=== PATIENT | female | born 1965 | race Caucasian/White ===

== ENCOUNTER 2016-10-23 08:21 | Inpatient (IN) | payer BC ==
[2016-10-23] MEDS ORDERED: ACETAMINOPHEN TAB 325 MG TAB PO PRN (08:28)
[2016-10-23] MEDS ORDERED: MORPHINE SULFATE 4 MG/ML SYRINGE IV PRN (08:28)
[2016-10-23] MEDS ORDERED: NALOXONE 0.4 MG/ML 1 ML VIAL IV PRN (08:28)
[2016-10-23] MEDS ORDERED: LIDOCAINE 2% INJ 20 MG/ML SQ ONE ×2 (08:36→08:46)
[2016-10-23] MEDS ORDERED: SODIUM CHLORIDE 0.9% 1,000 ML IV ONE ×2 (08:38→09:50)
[2016-10-23] MEDS ORDERED: fentaNYL (PF) 50 MCG/ML 2 ML AMP IV ONE (08:43)
[2016-10-23] MEDS ORDERED: MIDAZOLAM 2 MG/2 ML VIAL IV ONE (08:54)
[2016-10-23] MEDS ORDERED: BIVALIRUDIN 250 MG in SODIUM CHLORIDE 0.9% 50 ML IV ONE (08:57)
[2016-10-23] MEDS ORDERED: BIVALIRUDIN BOLUS 250 MG/50 ML IV ONE (08:57)
[2016-10-23] MEDS ORDERED: ATROPINE SULFATE 0.1 MG/ML 10ML SYRINGE IV ONE (09:09)
[2016-10-23] MEDS ORDERED: DOPamine DRIP 800 MG in DEXTROSE/WATER 1 500ML.BAG IV ONE (09:13)
[2016-10-23] MEDS ORDERED: MEPERIDINE 50 MG/ML SYRINGE IVP ONE (09:22)
[2016-10-23] MEDS: niCARdipine Syringe (1,000 mcg/10 mL) INTRACORON ONE ×2 (09:36→09:43)
[2016-10-23] MEDS ORDERED: PRASUGREL 10 MG TAB PO ONE (09:49)
[2016-10-23 09:51] LABS: Basophils # (A) 0.1 k/uL (0-0.2); Basophils % (A) 0 %; CH 31.4; CHCM 33.5; Eosinophils % (A) 0 %; HCT 41.4 % (34.0-46.0); HGB 13.5 gm/dL (11.4-16.0); Luc # (Auto) 0.09; Luc % (Auto) 1; Lymphocytes # (A) 1.1 k/uL (1.0-4.8); Lymphocytes % (A) 9 %; MCH 30.7 pg (25.0-35.0); MCHC 32.5 g/dL (31.0-37.0); MCV 94.3 fL (80.0-100.0); Monocytes # (A) 0.3 k/uL (0-1.0); Monocytes % (A) 2 %; Neutrophils # (A) 11.2 k/uL (1.3-7.7); Neutrophils % (A) 88 %; RBC 4.39 m/uL (3.80-5.40); RDW 13.4 % (11.5-15.5); WBC 12.7 k/uL (3.8-10.6)
[2016-10-23] MEDS ORDERED: IOHEXOL 350 MG/ML 100 ML BOTTLE INJ ONE (09:51)
[2016-10-23 10:08] LABS: ALT 35 U/L (9-52); AST 35 U/L (14-36); Alkaline Phosphatase 75 U/L (38-126); Anion Gap 11 mmol/L; Blood Urea Nitrogen 12 mg/dL (7-17); Calcium 8.3 mg/dL (8.4-10.2); Carbon Dioxide 22 mmol/L (22-30); Chloride 107 mmol/L (98-107); Glucose 137 mg/dL (74-99); Non-African American GFR(MDRD) >60 (>60 ml/min/1.73 sqM); Potassium 4.1 mmol/L (3.5-5.1); Sodium 140 mmol/L (137-145); Total Bilirubin 0.4 mg/dL (0.2-1.3)
[2016-10-23 10:26] LABS: Glucose,Whole Blood 110 mg/dL (75-99)
--- NOTE | 2016-10-23 11:51 | CONS ---
DATE OF CONSULTATION: CHIEF COMPLAINT: Acute inferior wall myocardial infarction. Juliane is a 51-year-old lady with no significant past medical history who had episodes of chest pressure yesterday mild to moderate with left arm numbness, resolved spontaneously. This morning, she woke up and had severe chest pressure with bilateral arm pain. EMS was called. She was found to have inferior ST segment elevation and was brought to the hospital emergently. I reviewed the EKGs even before the patient arrived in the ER and I met the patient for the first time in the [employer]. Patient is having acute inferior wall myocardial infarction and we are taking her expeditiously for primary angioplasty. Patient was otherwise doing well until now. Her coronary risk factors in the form of smoking. There is no history of hypertension, diabetes, dyslipidemia. Medications include Claritin and vitamin D. Allergic to SULFA. Family history is negative for premature coronary artery disease. SOCIAL HISTORY: Significant for smoking. There is no history of EtOH abuse, or drug abuse. REVIEW OF SYSTEMS: HEENT is unremarkable. CARDIAC: As described above. RESPIRATORY: Negative. GI: Negative. GENITOURINARY: Negative. ALLERGY/IMMUNOLOGY: Negative. SKIN: Negative. MUSCULOSKELETAL: Signification for arthritis. PSYCHOSOCIAL: Negative. ENDOCRINE: Negative. DERM: Negative. HEMATOLOGICAL: Negative. CONSTITUTIONAL: Negative. ADMINISTRATIVE OFFICER: Negative. ONCOLOGICAL: Negative. The rest of the system review is not relevant. On exam, patient for in pain, blood pressure was low and she was to obtain a hydration. Heart rate was in the 70s respiratory rate is 18. There is no jugular venous distention. Carotid upstroke is normal. There is no bruit. Chest exam reveals good air entry bilaterally. Heart exam reveals first and second heart sounds. No gallop. No murmur. Abdomen is soft, nontender. Exam of extremities did not reveal any edema. Peripheral pulses are felt. EKG shows acute inferior wall myocardial infarction. Labs were pending at this time. ASSESSMENT: Acute inferior wall myocardial infarction, probably secondary to occlusion of the right coronary artery. PLAN: Patient will be treated with aspirin, nitrates and will undergo emergent cardiac catheterization. She had been explained of risks, benefits, and alternatives, understood and accepted. Miles first and . INDICATION: Acute inferior wall myocardial infarction. PROCEDURE NOTE: After obtaining informed consent, left heart catheterization is done. At the right femoral artery using standard Alan catheters. Patient tolerated the procedure well without any obvious immediate complications. FINDINGS: HEMODYNAMICS: Left ventricular end-diastolic pressure was 8 to 10 mm there is no significant gradient across the aortic valve. Left ventriculogram: Left gram are performed. History angiographic data: Other than left main coronary artery: Left main coronary artery is normocephalic and is free of stenosis. It divides into left anterior descending coronary artery and circumflex coronary artery. LAD and its branches, circumflex coronary artery branches are free of significant stenosis. Right coronary artery is totally occluded in its midportion. CONCLUSION: Acutely occluded mid right coronary artery. PLAN: Patient will undergo angioplasty of the same Sunday
--- NOTE | 2016-10-23 11:54 | PCN ---
DATE OF PROCEDURE: INDICATION: Acute inferior wall myocardial infarction. PROCEDURE NOTE: After obtaining informed consent, left heart catheterization is done via the right femoral artery using standard Alan catheters. Patient tolerated the procedure well without any obvious immediate complications. FINDINGS: 1. HEMODYNAMICS: Left ventricular end-diastolic pressure is 8 to 10 mm, there is no significant gradient across the aortic valve. 2. LEFT VENTRICULOGRAM: Left ventriculogram is not performed. 3. ANGIOGRAPHIC DATA: LEFT MAIN CORONARY ARTERY: Left main coronary artery is normal and is free of stenosis. It divides into left anterior descending coronary artery and circumflex coronary artery. LAD and its branches, circumflex coronary artery and its branches are free of significant stenosis. Right coronary artery is totally occluded in its midportion. CONCLUSIONS: Acutely occluded mid-right coronary artery. PLAN: Patient will undergo angioplasty of the same.
[2016-10-23] MEDS: ATORVASTATIN 80 MG TAB PO SCH (12:55)
[2016-10-23] MEDS: PANTOPRAZOLE 40 MG/10 ML VIAL IV SCH (12:56)
[2016-10-23] MEDS: NICOTINE 14MG/24HR PATCH TRANSDERM SCH (12:57)
[2016-10-23] MEDS: METOPROLOL TARTRATE 12.5 MG TAB PO SCH (21:36)
[2016-10-24 04:33] LABS: Basophils % (A) 0 %; CHCM 32.9; Eosinophils # (A) 0.1 k/uL (0-0.7); Eosinophils % (A) 2 %; HCT 35.9 % (34.0-46.0); HDW 2.24; HGB 11.7 gm/dL (11.4-16.0); Luc # (Auto) 0.17; Luc % (Auto) 2; Lymphocytes # (A) 3.1 k/uL (1.0-4.8); Lymphocytes % (A) 37 %; MCH 30.8 pg (25.0-35.0); MCHC 32.5 g/dL (31.0-37.0); MCV 94.7 fL (80.0-100.0); Mean Platelet Volume 6.4; Monocytes # (A) 0.4 k/uL (0-1.0); Monocytes % (A) 4 %; Neutrophils # (A) 4.7 k/uL (1.3-7.7); Neutrophils % (A) 55 %; RBC 3.79 m/uL (3.80-5.40); RDW 13.6 % (11.5-15.5); WBC 8.5 k/uL (3.8-10.6); WBC (Perox) 8.68
[2016-10-24 04:42] LABS: Anion Gap 6 mmol/L; Blood Urea Nitrogen 11 mg/dL (7-17); Calcium 8.5 mg/dL (8.4-10.2); Carbon Dioxide 22 mmol/L (22-30); Chloride 111 mmol/L (98-107); Glucose 95 mg/dL (74-99); Non-African American GFR(MDRD) >60 (>60 ml/min/1.73 sqM); Potassium 4.2 mmol/L (3.5-5.1); Sodium 139 mmol/L (137-145)
--- NOTE | 2016-10-24 07:12 | PTCA ---
DATE OF SERVICE: 10/23/2016 PROCEDURE: PTCA and stenting of proximal/mid and distal RCA performed in the setting of an acute ST-elevation myocardial infarction as a primary procedure. Performed by Dr. Flakita Gomes. CLINICAL INFORMATION: Juliane Ng is a 51-year-old lady with a history of smoking and no other major risk factors, came to the hospital with chest pain and had inferior ST elevation. She was evaluated by Dr. Quinones who performed coronary angiography that revealed that RCA was totally occluded in the midportion left system did not have any significant disease. She was advised intervention of the RCA. The entire coronary artery was filled with thrombus. PROCEDURE NOTE: The existing 6 Maori introducer in the right femoral artery was used to perform procedure. I used a standard right Alan-type guide catheter to cannulate the right coronary artery. I used a BMW wire to cross the lesion and wire was kept distally. Predilatation was performed using a 3.0 caliber Trek balloon, I predilated the site of total occlusion. This was accomplished in 56 minutes from the time patient came to the emergency room. I also gave some distal inflations. Then the patient had a transient vessel occlusion with ST elevation. Promptly, I advanced the wire distally. I gave additional inflations. Patient also became bradycardic requiring intravenous atropine to be given and also for a transient use of dopamine. After multiple inflations, the entire vessel opened up. Patient stabilized. I then advanced a 2.75 caliber Xience 12 mm long stent and deployed this in the distal aspect of the RCA just before the bifurcation. Excellent angiographic result was achieved in that area. I also deployed another 2.75 caliber 15 mm stent and deployed this in the midportion. After some deliberation, I advanced a 2.75 caliber, 8 mm long Xience stent and deployed this in between the 2 stents. The entire mid coronary artery segment was therefore stented using a 2.75 caliber stents, a 15, at 12 and an 8 mm long stents were used. The distal flow in the artery was excellent. Patient had complete relief of chest pain and a significant improvement in the EKGs and she remained hemodynamically stable. I then used an Angio-Seal device to secure hemostasis and patient was sent to the room in a stable condition. Results were discussed with the patient and family members. Excellent angiographic result was achieved and this was accomplished in 56 minutes for the time she came to the emergency room. Results were discussed with the patient, her , her boyfriend and also of her daughter. She was sent to the ICU in a stable condition with improvement in EKG and total relief of chest pain.
--- NOTE | 2016-10-24 10:19 | ECHOF ---
Referral Reason:STEMI MEASUREMENTS -------- HEIGHT: 160.0 cm WEIGHT: 86.2 kg BP: 100/57 RVIDd: 3.0 cm (< 3.3) IVSd: 1.0 cm (0.6 - 1.1) LVIDd: 3.9 cm (3.9 - 5.3) LVPWd: 1.1 cm (0.6 - 1.1) IVSs: 1.5 cm LVIDs: 2.7 cm LVPWs: 1.6 cm LA Diam: 3.5 cm (2.7 - 3.8) LAESV Index (A-L): 32.66 ml/m Ao Diam: 3.1 cm (2.0 - 3.7) AV Cusp: 2.2 cm (1.5 - 2.6) LA Diam: 3.3 cm (2.7 - 3.8) MV EXCURSION: 14.273 mm (> 18.000) MV EF SLOPE: 134 mm/s (70 - 150) EPSS: 0.5 cm MV E Vega: 1.30 m/s MV DecT: 166 ms MV A Vega: 0.97 m/s MV E/A Ratio: 1.34 FINDINGS -------- Sinus rhythm. This was a technically good study. The left ventricular size is normal. There is borderline concentric left ventricular hypertrophy. Overall left ventricular systolic function is normal with, an EF between 60 - 65 %. The right ventricle is normal in size. LA is midly dilated 29-33ml/m2. The right atrium is normal in size. Aortic valve is trileaflet and is mildly thickened. Mild mitral annular calcification present. The tricuspid valve appears structurally normal. No regurgitation noted Trace/mild (physiologic) pulmonic regurgitation. The aortic root is mildy dilated. Normal inferior vena cava with normal inspiratory collapse consistent with estimated right atrial pressure of 5 mmHg. There is no pericardial effusion. CONCLUSIONS -------- 1. Sinus rhythm. 2. Mild mitral annular calcification present. 3. The tricuspid valve appears structurally normal. 4. Trace/mild (physiologic) pulmonic regurgitation. 5. The aortic root is mildy dilated. 6. Normal inferior vena cava with normal inspiratory collapse consistent with estimated right atrial pressure of 5 mmHg. 7. There is no pericardial effusion. 8. This was a technically good study. 9. The left ventricular size is normal. 10. There is borderline concentric left ventricular hypertrophy. 11. Overall left ventricular systolic function is normal with, an EF between 60 - 65 %. 12. The right ventricle is normal in size. 13. LA is midly dilated 29-33ml/m2. 14. The right atrium is normal in size. 15. Aortic valve is trileaflet and is mildly thickened. TECHNOLOGY SOLUTIONS ARCHITECT: Isamar Haas RDCS
[2016-10-24] MEDS: SODIUM CHLORIDE 0.9% 1,000 ML IV SCH ×2 (10:57→21:12)
[2016-10-24] MEDS: NICOTINE 14MG/24HR PATCH TRANSDERM SCH (10:57)
[2016-10-24] MEDS: ATORVASTATIN 80 MG TAB PO SCH (12:05)
[2016-10-24] MEDS: ASPIRIN 325 MG TAB PO SCH (12:05)
[2016-10-24] MEDS: METOPROLOL TARTRATE 12.5 MG TAB PO SCH ×2 (12:05→21:12)
[2016-10-24] MEDS: CLOPIDOGREL 75 MG TAB PO SCH (12:05)
[2016-10-24] MEDS: PANTOPRAZOLE 40 MG/10 ML VIAL IV SCH (12:28)
--- NOTE | 2016-10-24 14:28 | P.HPIM ---
History of Present Illness H&P Date: 10/24/16 Chief Complaint: Chest pain 51-year-old female with no past medical history comes in the hospital with sudden onset chest pain that initially started the night before presentation. Patient thought it was gas pain noted. Patient however after he woke up the next morning has significant chest pain that was midsternal location crushing in nature radiating to both her extremities. Patient was seen in the ER was noted to have a troponin elevation and ST-T wave changes. Patient was emergently taken to flex was noted to have a RCA obstruction. Patient thereafter had a PCI/PTCA to the mid and distal RCA. Patient was started on Physical therapy. Limited. Patient was seen in the ICU denies having any chest pain, difficulty breathing, nausea, vomiting at this time. she apparently was not having any exertional dyspnea or chest pain prior to admission. Review of Systems All systems: negative (Noted in HPI) Past Medical History Past Medical History: Myocardial Infarction (SC) Last Myocardial Infarction Date:: 10/23/2016 History of Any Multi-Drug Resistant Organisms: MRSA Date of last positivie culture/infection: 12/27/15 MDRO Source:: LEFT LEG MRSA Past Surgical History: No Surgical Hx Reported Past Anesthesia/Blood Transfusion Reactions: No Reported Reaction Past Psychological History: No Psychological Hx Reported Smoking Status: Current every day smoker - Past Family History Mother Family Medical History: Coronary Artery Disease (CAD) Medications and Allergies Home Medications Medication Instructions Recorded Confirmed Type Cholecalciferol [Vitamin D3] 1,000 unit PO DAILY 10/23/16 10/23/16 History Loratadine [Claritin] 10 mg PO DAILY PRN 10/23/16 10/23/16 History Multivitamins, Thera [Multivitamin] 1 tab PO DAILY 10/23/16 10/23/16 History Allergies Allergy/AdvReac Type Severity Reaction Status Date / Time Sulfa (Sulfonamide Allergy Unknown Verified 10/23/16 10:08 Antibiotics) Physical Exam Vitals: Vital Signs Temp Pulse Pulse Resp BP BP Pulse Ox 10/24/16 12:37 70 16 112/69 97 10/24/16 12:00 64 20 85/58 98 10/24/16 11:00 58 L 20 106/65 10/24/16 10:00 62 18 85/58 10/24/16 09:00 82 20 103/54 10/24/16 08:00 98.4 F 86 23 100/57 98 10/24/16 07:00 71 25 H 95/55 100 10/24/16 06:00 59 L 17 94/63 100 10/24/16 05:00 62 19 84/47 100 10/24/16 04:00 97.3 F L 63 16 96/60 10/24/16 03:00 76 22 91/54 98 10/24/16 02:00 56 L 18 91/44 10/24/16 01:00 56 L 16 95/62 10/24/16 00:00 97.9 F 81 66 H 85/54 100 10/23/16 23:00 59 L 26 H 83/53 100 10/23/16 22:00 59 L 21 98/61 98 10/23/16 21:00 61 22 87/55 100 10/23/16 20:00 97.9 F 61 22 96/62 100 10/23/16 19:00 64 23 106/57 10/23/16 18:00 67 27 H 10/23/16 17:00 67 19 87/58 100 10/23/16 16:00 98.4 F 61 16 86/55 100 10/23/16 15:00 63 23 84/56 100 Intake and Output 10/23/16 10/24/16 10/24/16 22:59 06:59 14:59 Intake Total 1050 900 580 Output Total 600 300 Balance 450 900 280 Intake: IV 600 900 100 Sodium Chloride 0.9% 1, 600 900 100 000 ml @ 100 mls/hr IV . Q10H JEFF Rx#:[id number] Intake, IV Titration 200 Amount Sodium Chloride 0.9% 1, 200 000 ml @ 100 mls/hr IV . Q10H JEFF Rx#:[id number] Oral 250 480 Output: Urine 600 300 Other: # Voids 1 0 1 Weight 86.183 kg 94.9 kg 94.9 kg Patient Weight 10/25/16 06:59 Weight 94.9 kg Physical exam Gen. appearance oriented 3 in no distress Neck is supple no JVD Lungs good air entry clear to auscultation no rhonchi or wheezing Heart S1-S2 heard regular rate and rhythm no murmurs appreciated Abdomen is soft nontender no organomegaly bowel sounds are intact Neurologically cranial nerves II-12 grossly intact no focal motor or sensory deficits noted Skin no abnormalities appreciated Results CBC & Chem 7: 10/24/16 04:10 10/24/16 04:10 Labs: Abnormal Lab Results - Last 24 Hours (Table) 10/24/16 10/24/16 Range/Units 04:10 04:10 RBC 3.79 L (3.80-5.40) m/uL Chloride 111 H (98-107) mmol/L Thrombosis Risk Factor Assmnt - Choose All That Apply Each Factor Represents 1 point: Acute SC, Age 41-60 years, Obesity (BMI >25) Thrombosis Risk Factor Assessment Total Risk Factor Score: 3 Thrombosis Risk Factor Assessment Level: Moderate Risk Assessment and Plan Plan: ST elevation myocardial infraction to the RCA status post PCI, PTCA Plan Dual antiplatelet therapy. Atorvastatin 80 mg. Beta hermes therapy .
--- NOTE | 2016-10-24 14:46 | PN ---
Juliane is a 51-year-old lady who was admitted to hospital with acute inferior wall myocardial infarction, underwent emergent cardiac catheterization and angioplasty of totally occluded right coronary artery. This morning, she is doing well and is free of symptoms. She has somewhat of a LOW blood pressures in the 80s but asymptomatic. Patient is on aspirin, Plavix, Lipitor which she is able to take. Metoprolol is on hold. On exam, comfortable at rest. Blood pressure is 85/50, respiratory rate is 18. There is no jugular venous distention. Chest exam reveals good air entry bilaterally. Heart exam reveals first and second heart sounds. No gallop. No murmur. Abdomen is soft, nontender. Exam of the extremities did not reveal any edema. Peripheral pulses are felt. I only have one set of troponin and I do not see the point of doing troponins on her. Hemoglobin is 11.7. Creatinine is 0.7. An echocardiogram shows normal LV function. ASSESSMENT: Acute inferior wall myocardial infarction, status post cath angioplasty. PLAN: Patient is doing well. She will continue with the current medications. Will be transferred out of ICU.
[2016-10-24 15:52] VITALS: RESP 18
[2016-10-25] MEDS: SODIUM CHLORIDE 0.9% 1,000 ML IV SCH (06:44)
[2016-10-25] MEDS ORDERED: PANTOPRAZOLE 40 MG TABLET PO SCH (07:30)
[2016-10-25 08:52] VITALS: BP 97/61; PULSE 71; TEMP 98.4
[2016-10-25] MEDS ORDERED: METOPROLOL TARTRATE 12.5 MG TAB PO SCH (09:00)
[2016-10-25] MEDS: ASPIRIN 325 MG TAB PO SCH (09:12)
[2016-10-25] MEDS: CLOPIDOGREL 75 MG TAB PO SCH (09:12)
[2016-10-25] MEDS: ATORVASTATIN 80 MG TAB PO SCH (09:12)
[2016-10-25] MEDS: NICOTINE 14MG/24HR PATCH TRANSDERM SCH (09:16)
--- NOTE | 2016-10-25 11:40 | P.PN ---
Subjective Principal diagnosis: Inferior wall STEMI This is a 51-year-old lady admitted to the hospital with an acute inferior wall ST elevation myocardial infarction, she underwent emergent catheterization with stenting of the right coronary artery. Patient was seen and examined this morning denies any chest pain or difficulty in breathing. She's been up ambulating without any difficulty. Blood pressure this morning in the 80s systolic range, the beta hermes was held last night. Dose of beta hermes decreased from 12-1/2 mg twice a day to 12-1/2 mg daily. After ambulating the patient's blood pressure came up to 108/60. She feels well. Eager to be discharged home. Objective - Vital Signs Vital signs: Vital Signs Temp 98.4 F 10/25/16 08:00 Pulse 71 10/25/16 08:00 Resp 18 10/25/16 08:00 BP 97/61 10/25/16 08:00 Pulse Ox 95 10/25/16 08:00 Intake & Output 10/24/16 10/25/16 10/25/16 18:59 06:59 18:59 Intake Total 700 360 Output Total 300 Balance 400 360 Weight 94.9 kg 86.8 kg Intake: IV 100 Sodium Chloride 0.9% 1, 100 000 ml @ 100 mls/hr IV . Q10H JEFF Rx#:[id number] Oral 600 360 Output: Urine 300 Other: Voiding Method Toilet Toilet # Voids 1 2 - Exam PHYSICAL EXAMINATION: HEENT: Head is atraumatic, normocephalic. Pupils equal, round. Neck is supple. There is no elevated jugular venous pressure. HEART EXAMINATION: Heart S1, S2 normal. No murmur or gallop heard. CHEST EXAMINATION: Lungs are clear to auscultation and precussion. No chest wall tenderness is noted on palpation or with deep breathing. ABDOMEN: Soft, nontender. Bowel sounds are heard. No organomegaly noted. Right and left groins soft, no evidence of any hematoma. EXTREMITIES: 2+ peripheral pulses with no evidence of peripheral edema and no calf tenderness noted. NEUROLOGIC patient is awake, alert and oriented -3. . - Labs CBC & Chem 7: 10/24/16 04:10 10/24/16 04:10 Assessment and Plan (1) ST elevation myocardial infarction (STEMI) of inferior wall Status: Acute (2) S/P right coronary artery (RCA) stent placement Status: Acute (3) Hyperlipemia Status: Acute (4) Nicotine dependence Status: Acute Plan: From cardiology's perspective, patient may be able to be discharged home today. We will make her a follow-up appointment in the office to see Dr. Siegel in 2 weeks. Patient will be discharged home on aspirin 325 mg daily, Lipitor 80 mg daily, Plavix 75 mg daily, metoprolol tartrate 12-1/2 mg daily, nicotine patch, and sublingual nitroglycerin as needed for chest pain. The patient has been educated regarding her current medications and prescriptions have been provided. DNP note has been reviewed, I agree with a documented findings and plan of care. Patient was seen and examined.
--- NOTE | 2016-10-25 17:12 | P.DS ---
Providers Date of admission: 10/23/16 08:57 Expected date of discharge: 10/25/16 Attending physician: Skyler Sutton Consults: 10/23/16 08:28 Consult Physician Stat Consulting Provider: Samson Morfin Consult Reason/Comments: Post STEMI ICU admission Do you want consulting provider notified?: Yes 10/23/16 10:35 Consult Physician Routine Consulting Provider: Ritesh Gomes Consult Reason/Comments: stemi, post cath Do you want consulting provider notified?: Already Contacted Dr. Quinones, Cardiology Primary care physician: Yulisa Lambert Hospital Course: Final Diagnoses: 1. ST elevation myocardial infraction to the RCA status post PCI, PTCA. 2. Hyperlipidemia 3. Nicotine dependence Hospital course:This is a 51-year-old female with no past medical history admitted with acute inferior STEMI , troponin elevation and ST-T wave changes.. Evaluated by Cardiology and underwent emergent cardiac catheterization,PCI/PTCA to the mid and distal RCA. Tolerated procedure well. Echo reporting normal EF 6065% Postprocedure developed borderline hypotension and beta hermes dose decreased. Cleared by cardiology for discharge. Patient is being discharged home in stable condition with guarded prognosis. Patient Condition at Discharge: Stable Plan - Discharge Summary New Discharge Prescriptions: Aspirin 325 mg PO DAILY #30 tab Atorvastatin [Lipitor] 80 mg PO DAILY #30 tab Clopidogrel [Plavix] 75 mg PO DAILY #30 tab Metoprolol Tartrate [Lopressor] 12.5 mg PO DAILY #30 tab Nicotine 14Mg/24Hr Patch [Habitrol] 1 patch TRANSDERM DAILY #30 patch Nitroglycerin Sl Tabs [Nitrostat] 0.4 mg SUBLINGUAL Q5M PRN #100 tab PRN Reason: Chest Pain Pantoprazole [Protonix] 40 mg PO AC-BRKFST #30 tablet.dr Discharge Medication List Cholecalciferol [Vitamin D3] 1,000 unit PO DAILY 10/23/16 [History] Loratadine [Claritin] 10 mg PO DAILY PRN 10/23/16 [History] Multivitamins, Thera [Multivitamin] 1 tab PO DAILY 10/23/16 [History] Aspirin 325 mg PO DAILY #30 tab 10/25/16 [Rx] Atorvastatin [Lipitor] 80 mg PO DAILY #30 tab 10/25/16 [Rx] Clopidogrel [Plavix] 75 mg PO DAILY #30 tab 10/25/16 [Rx] Metoprolol Tartrate [Lopressor] 12.5 mg PO DAILY #30 tab 10/25/16 [Rx] Nicotine 14Mg/24Hr Patch [Habitrol] 1 patch TRANSDERM DAILY #30 patch 10/25/16 [ Rx] Nitroglycerin Sl Tabs [Nitrostat] 0.4 mg SUBLINGUAL Q5M PRN #100 tab 10/25/16 [ Rx] Pantoprazole [Protonix] 40 mg PO AC-BRKFST #30 tablet. 10/25/16 [Rx] Follow up Appointment(s)/Referral(s): Yulisa Lambert DO [Primary Care Provider] - 10/31/16 1:00 pm Timothy Quinones MD [STAFF PHYSICIAN] - 11/07/16 2:30 pm Patient Instructions/Handouts: After Heart Catheterization - [employer], Myocardial Infarction (DC) Discharge Disposition: HOME SELF-CARE
== END 2016-10-25 11:56 | disposition home or self-care (01) | DRG 247 ==
LOC: 6ICU 08:57 → 6SEL 10-24 12:41
PROVIDERS: ADMIT Internal Medicine Cardiovascular Disease; ATTEND Hospitalist
PROC: B2111ZZ Fluoroscopy of Multiple Coronary Arteries using Low Osmolar Contrast (ICD-10-PCS; 2016-10-23)
PROC: B2151ZZ Fluoroscopy of Left Heart using Low Osmolar Contrast (ICD-10-PCS; 2016-10-23)
PROC: 027036Z Dilation of Coronary Artery, One Artery with Three Drug-eluting Intraluminal Devices, Percutaneous Approach (ICD-10-PCS; principal; 2016-10-23 08:30)
PROC: 4A023N7 Measurement of Cardiac Sampling and Pressure, Left Heart, Percutaneous Approach (ICD-10-PCS; 2016-10-23 08:30)
DX: I21.19 ST elevation (STEMI) myocardial infarction involving other coronary artery of inferior wall (principal); E78.5 Hyperlipidemia, unspecified; F17.200 Nicotine dependence, unspecified, uncomplicated; I25.10 Atherosclerotic heart disease of native coronary artery without angina pectoris; Z88.2 Allergy status to sulfonamides; Z86.14 Personal history of Methicillin resistant Staphylococcus aureus infection; Z82.49 Family history of ischemic heart disease and other diseases of the circulatory system
CPT/HCPCS: 80048; 80053; 84484; 85025; 93306; 93458

== ENCOUNTER → 2017-03-09 | Outpatient (CLI) | payer BC ==
--- NOTE | 2017-03-15 07:10 | MM ---
Reason for exam: screening (asymptomatic). Last mammogram was performed 6 years ago. Physical Findings: A clinical breast exam by your physician is recommended on an annual basis and results should be correlated with mammographic findings. MG 3D Screening Mammo W/Cad Bilateral CC and MLO view(s) were taken. Prior study comparison: February 27, 2011, mammogram, performed at [facility]. February 20, 2011, mammogram, performed at [facility]. The breast tissue is almost entirely fat. There is no discrete abnormality. No significant changes when compared with prior studies. ASSESSMENT: Negative, BI-RAD 1 RECOMMENDATION: Routine screening mammogram of both breasts in 1 year.
== END | disposition home or self-care (01) ==
LOC: RADMAMWWP 11:01
PROVIDERS: ATTEND Family Medicine
DX: Z12.31 Encounter for screening mammogram for malignant neoplasm of breast (principal)
CPT/HCPCS: 77063; G0202

== ENCOUNTER 2018-08-29 10:08 | Day surgery (SDC) | payer BC ==
[2018-08-27 12:33] VITALS: BMI 44.9
[~2018-08-29 10:08] MED LIST: LACTATED RINGERS 1,000 ML IV SCH
[2018-08-29 11:09] VITALS: TEMP 98.2
[2018-08-29] MEDS ORDERED: LIDOCAINE 1% 20 ML VIAL (10MG/ML) FOR IV START INTRADERMA ONE (11:20)
[2018-08-29] MEDS ORDERED: LIDOCAINE 1% INJ 10MG/ML (20 ML MDV) ONE (11:40)
[2018-08-29] MEDS ORDERED: PROPOFOL 10 MG/ML 20 ML VIAL IV ONE (11:40)
--- NOTE | 2018-08-29 12:31 | P.PCN ---
Date of Procedure: 08/29/18 Procedure(s) Performed: Procedures: 1. Esophagogastroduodenoscopy and biopsy. 2. Colonoscopy and polypectomy. Preoperative diagnosis: Chronic reflux symptoms and screening for colon cancer. Postoperative diagnosis: 1. Small sliding hiatal hernia with no obvious esophagitis or complicated reflux disease. 2. Mild antral gastritis. 3. Sigmoid polyps snared but no large polyps or cancer. Preparation: HalfLytely prep. Sedation: Was provided by anesthesia. Brief clinical history: The patient is a 53-year-old female with recent onset of reflux symptoms over the last 2 or 3 months that has not responded to medical therapy yet. In addition she scheduled for colonoscopy for screening for colon cancer. Procedure: With the patient on her left lateral decubitus position and after informed consent and adequate sedation, I passed the Olympus-GIF 160 video upper endoscope through the cricopharyngeus down the esophagus. GE junction was around 36 cm from the incisors and there was a small sliding hiatal hernia but no obvious esophagitis or complicated reflux disease. The endoscope was then passed into the stomach which was insufflated with air and inspected in detail including the retroflex view in the cardia. There was some mottling and erythema in the antrum but no ulcers or erosions. Pyloric channel, duodenal bulb, post bulbar area and descending duodenum appeared within normal limits. I obtained biopsies from the duodenum, antrum and esophagus then the endoscope was withdrawn and I proceeded to perform the colonoscopy. Perianal area did not show any fissures or fistulas. There were no masses felt on digital rectal examination. The Olympus CFH 190L video colonoscope was then inserted in the rectum in the usual fashion and advanced to the cecum. There were 2 small polyps in the sigmoid around 40 cm from the anal verge which I snared and retrieved by suction but there were no large polyps or cancer. No obvious diverticular disease or other pathology. The mucosa appeared healthy. I retroflexed the endoscope in the rectum before the endoscope was withdrawn. The patient tolerated the procedure well. Plan: The patient was reassured. Will await pathology results and make further recommendations. I anticipate repeating her colonoscopy in 3-5 years. We would keep you updated on her progress.
[2018-08-29 12:41] VITALS: BP 123/76; RESP 16
[2018-08-29 12:53] VITALS: PULSE 66
== END 2018-08-29 13:07 | disposition home or self-care (01) ==
LOC: ORWHC2ENDO 10:08
DX: Z12.11 Encounter for screening for malignant neoplasm of colon (principal); D12.5 Benign neoplasm of sigmoid colon; K21.0 Gastro-esophageal reflux disease with esophagitis; K44.9 Diaphragmatic hernia without obstruction or gangrene; K29.80 Duodenitis without bleeding; I25.10 Atherosclerotic heart disease of native coronary artery without angina pectoris; K29.70 Gastritis, unspecified, without bleeding; F17.210 Nicotine dependence, cigarettes, uncomplicated; I25.2 Old myocardial infarction; E78.5 Hyperlipidemia, unspecified; I10 Essential (primary) hypertension; Z79.899 Other long term (current) drug therapy; Z79.82 Long term (current) use of aspirin; Z88.2 Allergy status to sulfonamides; Z88.8 Allergy status to other drugs, medicaments and biological substances; Z95.5 Presence of coronary angioplasty implant and graft
CPT/HCPCS: 81025; 88305; 45385; 43239; J2001; J2704

== ENCOUNTER → 2018-09-20 | Outpatient (CLI) | payer BC ==
--- NOTE | 2018-09-27 08:57 | MM ---
Reason for exam: screening (asymptomatic). Last mammogram was performed 1 year and 6 months ago. MG 3D Screening Mammo W/Cad Bilateral CC and MLO view(s) were taken. Prior study comparison: March 09, 2017, bilateral MG 3d screening mammo w/cad. February 27, 2011, mammogram, performed at [facility]. The breast tissue is heterogeneously dense. This may lower the sensitivity of mammography. No suspicious abnormality. No significant changes when compared with prior studies. ASSESSMENT: Negative, BI-RAD 1 RECOMMENDATION: Routine screening mammogram of both breasts in 1 year.
== END | disposition home or self-care (01) ==
LOC: RADMAMWWP 14:41
PROVIDERS: ATTEND Family Medicine
DX: Z12.31 Encounter for screening mammogram for malignant neoplasm of breast (principal)
CPT/HCPCS: 77063; 77067

== ENCOUNTER 2020-01-02 01:41 | Emergency (ER) | payer BC ==
[2020-01-02 02:07] VITALS: TEMP 98.5
[2020-01-02] MEDS ORDERED: HYDROmorphone 1 MG/ML 1 ML SYRINGE IVP STA (02:13)
[2020-01-02] MEDS ORDERED: ONDANSETRON 4 MG/2 ML VIAL IVP STA (02:13)
[2020-01-02 02:17] LABS: Basophils % (A) 0 %; Eosinophils # (A) 0.2 k/uL (0-0.7); Eosinophils % (A) 2 %; HCT 45.3 % (34.0-46.0); HGB 14.7 gm/dL (11.4-16.0); Lymphocytes # (A) 1.2 k/uL (1.0-4.8); Lymphocytes % (A) 13 %; MCH 29.4 pg (25.0-35.0); MCHC 32.4 g/dL (31.0-37.0); MCV 90.5 fL (80.0-100.0); Mean Platelet Volume 6.5; Monocytes # (A) 0.3 k/uL (0-1.0); Monocytes % (A) 4 %; Neutrophils # (A) 7.4 k/uL (1.3-7.7); Neutrophils % (A) 80 %; Platelet Count 390 k/uL (150-450); RBC 5.01 m/uL (3.80-5.40); WBC 9.3 k/uL (3.8-10.6)
--- NOTE | 2020-01-02 02:17 | ED ---
Abdominal Pain HPI - General Chief Complaint: Abdominal Pain Stated Complaint: Abdominal pain Time Seen by Provider: 01/02/20 01:55 Source: patient, family Mode of arrival: ambulatory Limitations: no limitations - History of Present Illness Initial Comments: This patient is a 54-year-old woman who presents to be evaluated for right upper quadrant pain. The patient states the pain had started about 8 PM tonight while she was relaxing. The patient states that it does radiate to her back. Pain is aching, moderate to severe intensity. She has not noted worsening or relieving factors. The pain has also been accompanied by a number of episodes of v omiting. She has not seen any blood or coffee-ground material. She had last eaten a little under an hour before the pain had started. MD Complaint: abdominal pain Onset/Timin -: hour(s) Location: RUQ Radiation: back Migration to: no migration Severity: severe Quality: aching Consistency: constant Improves With: nothing Worsens With: nothing Associated Symptoms: nausea, vomiting - Related Data Home Medications Medication Instructions Recorded Confirmed Loratadine [Claritin] 10 mg PO DAILY PRN 10/23/16 08/27/18 Famotidine [Pepcid AC] 10 mg PO DAILY 08/27/18 08/27/18 Pravastatin Sodium [Pravachol] 40 mg PO DAILY 08/27/18 08/27/18 Previous Rx's Medication Instructions Recorded Aspirin 325 mg PO DAILY #30 tab 10/25/16 Ondansetron Odt [Zofran ODT] 4 mg PO Q8HR PRN #10 tab 01/02/20 Allergies Allergy/AdvReac Type Severity Reaction Status Date / Time Sulfa (Sulfonamide Allergy Rash/Hives Verified 01/02/20 01:52 Antibiotics) Lipoeew-Zbx-[id number] Reductase AdvReac SEVERE Verified 01/02/20 01:52 Inhibitor MUSCLE PAIN Review of Systems ROS Statement: Those systems with pertinent positive or pertinent negative responses have been documented in the HPI. ROS Other: All systems not noted in ROS Statement are negative. Constitutional: Denies: fever, chills Respiratory: Denies: cough, dyspnea Cardiovascular: Denies: chest pain, palpitations, edema, syncope Gastrointestinal: Reports: as per HPI, abdominal pain, nausea, vomiting. Denies: diarrhea, constipation, hematemesis, melena, hematochezia Genitourinary: Denies: dysuria, hematuria Musculoskeletal: Denies: back pain Skin: Denies: rash Neurological: Denies: headache, weakness, numbness Past Medical History Past Medical History: GERD/Reflux, Hyperlipidemia, Hypertension, Myocardial Infarction (MD) Last Myocardial Infarction Date:: 10/23/2016 History of Any Multi-Drug Resistant Organisms: MRSA Date of last positivie culture/infection: 12/27/15 MDRO Source:: LEFT LEG MRSA Past Surgical History: Appendectomy Additional Past Surgical History / Comment(s): COLTEN SHERIFF Past Anesthesia/Blood Transfusion Reactions: Postoperative Nausea & Vomiting (PONV) Past Psychological History: No Psychological Hx Reported Smoking Status: Current every day smoker Past Alcohol Use History: None Reported Past Drug Use History: None Reported - Past Family History Mother Family Medical History: Coronary Artery Disease (CAD) General Exam Limitations: no limitations General appearance: alert, in no apparent distress Head exam: Present: atraumatic, normocephalic Eye exam: Present: normal appearance. Absent: scleral icterus, conjunctival injection ENT exam: Present: normal oropharynx Neck exam: Present: normal inspection Respiratory exam: Present: normal lung sounds bilaterally. Absent: respiratory distress, wheezes, rales, rhonchi, stridor Cardiovascular Exam: Present: regular rate, normal rhythm, normal heart sounds. Absent: systolic murmur, diastolic murmur, rubs, gallop GI/Abdominal exam: Present: soft, tenderness, guarding, normal bowel sounds. Absent: distended, rebound, rigid, mass, pulsatile mass, hernia Extremities exam: Present: normal inspection, normal capillary refill. Absent: pedal edema, calf tenderness Back exam: Present: normal inspection. Absent: CVA tenderness (R), CVA tenderness (L) Neurological exam: Present: alert Skin exam: Present: warm, dry, intact, normal color. Absent: rash Course Vital Signs 01/02/20 01:47 Temperature 98.5 F Pulse Rate 84 Respiratory 20 Rate Blood Pressure 128/77 O2 Sat by Pulse 98 Oximetry Medical Decision Making - Medical Decision Making This patient is a 54-year-old woman with history and physical exam suggestive of biliary colic/cholecystitis. The patient did however have resolution of her symptoms following medication. I discussed imaging methods including CT versus ultrasound. At this point the patient is feeling better and would like to have the ultrasound performed as outpatient, and will return if the symptoms recur or if there are any new symptoms. We discussed the appropriate further care and follow-up as well as return parameters. - Lab Data Result diagrams: 01/02/20 02:05 01/02/20 02:05 Lab Results 01/02/20 01/02/20 Range/Units 02:05 02:05 WBC 9.3 (3.8-10.6) k/uL RBC 5.01 (3.80-5.40) m/uL Hgb 14.7 (11.4-16.0) gm/dL Hct 45.3 (34.0-46.0) % MCV 90.5 (80.0-100.0) fL MCH 29.4 (25.0-35.0) pg MCHC 32.4 (31.0-37.0) g/dL RDW 15.0 (11.5-15.5) % Plt Count 390 (150-450) k/uL Neutrophils % 80 % Lymphocytes % 13 % Monocytes % 4 % Eosinophils % 2 % Basophils % 0 % Neutrophils # 7.4 (1.3-7.7) k/uL Lymphocytes # 1.2 (1.0-4.8) k/uL Monocytes # 0.3 (0-1.0) k/uL Eosinophils # 0.2 (0-0.7) k/uL Basophils # 0.0 (0-0.2) k/uL Sodium 136 L (137-145) mmol/L Potassium 4.5 (3.5-5.1) mmol/L Chloride 99 (98-107) mmol/L Carbon Dioxide 28 (22-30) mmol/L Anion Gap 9 mmol/L BUN 14 (7-17) mg/dL Creatinine 0.68 (0.52-1.04) mg/dL Est GFR (CKD-EPI)AfAm >90 (>60 ml/min/1.73 sqM) Est GFR (CKD-EPI)NonAf >90 (>60 ml/min/1.73 sqM) Glucose 127 H (74-99) mg/dL Calcium 9.5 (8.4-10.2) mg/dL Total Bilirubin 1.0 (0.2-1.3) mg/dL AST 202 H (14-36) U/L ALT 119 H (4-34) U/L Alkaline Phosphatase 179 H (38-126) U/L C-Reactive Protein 12.0 H (<10.0) mg/L Total Protein 8.2 (6.3-8.2) g/dL Albumin 4.5 (3.5-5.0) g/dL Amylase 75 (30-110) U/L Lipase 262 (23-300) U/L - EKG Data -: EKG Interpreted by Me EKG shows normal: sinus rhythm, axis (Normal), intervals (Normal), QRS complexes (Normal), ST-T waves Rate: normal (Rate is proximal 70 bpm) Disposition Clinical Impression: Biliary colic Disposition: HOME SELF-CARE Condition: Good Instructions (If sedation given, give patient instructions): Biliary Colic (ED) Prescriptions: Ondansetron Odt [Zofran ODT] 4 mg PO Q8HR PRN #10 tab PRN Reason: Nausea Is patient prescribed a controlled substance at d/c from ED?: No Referrals: Yulisa Lambert DO [Primary Care Provider] - 1-2 days Cem Siu MD [Medical Doctor] - 1-2 days
[2020-01-02 02:29] LABS: ALT 119 U/L (4-34); AST 202 U/L (14-36); African American GFR (CKD) >90 (>60 ml/min/1.73 sqM); Albumin 4.5 g/dL (3.5-5.0); Alkaline Phosphatase 179 U/L (38-126); Amylase 75 U/L (30-110); Anion Gap 9 mmol/L; Blood Urea Nitrogen 14 mg/dL (7-17); Calcium 9.5 mg/dL (8.4-10.2); Carbon Dioxide 28 mmol/L (22-30); Chloride 99 mmol/L (98-107); Glucose 127 mg/dL (74-99); Non-African American GFR(CKD) >90 (>60 ml/min/1.73 sqM); Potassium 4.5 mmol/L (3.5-5.1); Sodium 136 mmol/L (137-145); Total Protein 8.2 g/dL (6.3-8.2)
[2020-01-02 03:50] VITALS: BP 130/80; PULSE 83; RESP 18
== END 2020-01-02 03:40 | disposition home or self-care (01) ==
LOC: EC 01:41
DX: K80.50 Calculus of bile duct without cholangitis or cholecystitis without obstruction (principal); K21.9 Gastro-esophageal reflux disease without esophagitis; E78.5 Hyperlipidemia, unspecified; I25.2 Old myocardial infarction; F17.200 Nicotine dependence, unspecified, uncomplicated; Z86.14 Personal history of Methicillin resistant Staphylococcus aureus infection; Z90.49 Acquired absence of other specified parts of digestive tract; Z79.899 Other long term (current) drug therapy; Z88.2 Allergy status to sulfonamides; Z88.8 Allergy status to other drugs, medicaments and biological substances
CPT/HCPCS: 36415; 93005; 80053; 82150; 83690; 85025; 86140; 99284; 96374; 96375; J2405; J1170

== ENCOUNTER → 2020-01-02 | Outpatient (CLI) | payer BC ==
--- NOTE | 2020-01-02 12:43 | US ---
EXAMINATION TYPE: US abdomen limited DATE OF EXAM: 01/02/2020 COMPARISON: NONE CLINICAL HISTORY: R10.9 abdominal pain. EXAM MEASUREMENTS: Liver Length: 14.4 cm Gallbladder Wall: 0.4 cm CBD: 0.8 cm Right Kidney: 10.3 x 4.8 x 4.8 cm Pancreas: partially obscured by bowel gas Liver: wnl Gallbladder: cholelithiasis, wall slightly thickened, there may be some pericholecystic fluid Evidence for sonographic Curran's sign: CBD: dilated Right Kidney: inferior pole obscured by overlying bowel gas IMPRESSION: 1. Acute cholecystitis difficult to exclude. Correlate clinically.
== END | disposition home or self-care (01) ==
LOC: RADUSWWP 11:53
PROVIDERS: ATTEND Emergency Medicine
DX: K81.0 Acute cholecystitis (principal)
CPT/HCPCS: 76705

== ENCOUNTER → 2020-10-07 | Outpatient (CLI) | payer BC ==
--- NOTE | 2020-10-07 18:34 | CT ---
EXAMINATION TYPE: CT abdomen pelvis wo con DATE OF EXAM: 10/07/2020 COMPARISON: None INDICATION: Right flank pain and microscopic hematuria DLP: 927.3 mGycm, Automated exposure control for dose reduction was used. CONTRAST: None Study performed without Oral Contrast TECHNIQUE: Axial images were obtained from above the diaphragm to the pubic rami in the axial plane a t 5 mm thick sections. Reconstructed images are reviewed on the computer in the coronal plane. FINDINGS: Limited CT sections are obtained the lung bases. The lung bases are clear. Coronary artery calcific ations present. CT ABDOMEN: Liver: Normal Spleen: L-spine granuloma within the spleen Pancreas: Normal Adrenal glands: The adrenal glands are normal. Gallbladder: Surgically absent. Kidneys: No masses are evident. No hydronephrosis is present. No cysts are present. No renal stone s are evident. Aorta: Vascular calcification is within the aorta. Inferior vena cava: Normal. CT PELVIS: Small periumbilical hernia containing mesenteric fat is noted. Calcified granulomas in the right posterior lateral flank. Loops of bowel within the abdomen and pelvis are normal. There are loops of bowel which are incom pletely distended or lack oral contrast limiting their evaluation. Appendix: Normal as visualized. Urinary bladder: Normal. No suspicious calcifications are evident. This is partially decompressed cau sing some limitation. Genitourinary structures: Uterus contains an IUD. Adnexal regions are normal. Osseous structures: No suspicious lytic or sclerotic lesions. Facet degenerative changes IMPRESSIONS: 1. No suspicious abnormality to account for microhematuria.
== END | disposition home or self-care (01) ==
LOC: RADCTMAIN 08:10
PROVIDERS: ATTEND Nurse Practitioner Family
DX: R10.31 Right lower quadrant pain (principal); R31.29 Other microscopic hematuria
CPT/HCPCS: 74176

== ENCOUNTER → 2020-11-05 | Outpatient (CLI) | payer BC ==
--- NOTE | 2020-11-09 08:51 | MM ---
Reason for exam: screening (asymptomatic). Last mammogram was performed 2 years and 1 month ago. Physical Findings: A clinical breast exam by your physician is recommended on an annual basis and results should be correlated with mammographic findings. MG 3D Screening Mammo W/Cad Bilateral CC and MLO view(s) were taken. Prior study comparison: September 20, 2018, bilateral MG 3d screening mammo w/cad. March 09, 2017, bilateral MG 3d screening mammo w/cad. There are scattered fibroglandular densities. There is chronic nodularity in the right breast. No significant changes when compared with prior studies. ASSESSMENT: Negative, BI-RAD 1 RECOMMENDATION: Routine screening mammogram of both breasts in 1 year.
== END | disposition home or self-care (01) ==
LOC: RADMAMWWP 14:57
PROVIDERS: ATTEND Nurse Practitioner Family
DX: Z12.31 Encounter for screening mammogram for malignant neoplasm of breast (principal)
CPT/HCPCS: 77063; 77067

== ENCOUNTER → 2021-08-05 | Outpatient (CLI) | payer BC ==
--- NOTE | 2021-08-06 15:40 | PE ---
EXAMINATION TYPE: PET CT fusion skull to thigh DATE OF EXAM: 08/05/2021 COMPARISON: CT abdomen and pelvis October 07, 2020 HISTORY: Cervical cancer invasive squamous cell cancer diagnosed July 06 on recent biopsy. TECHNIQUE: Following the intravenous administration of 11.98 mCi of F-18 FDG, whole body images are performed from the skull base to the midthigh. Images are reviewed on the computer in the coronal, a xial, and sagittal planes. Reconstructed rotating images are created on independent workstation and reviewed on the computer. A localization and attenuation correction CT is performed in conjunction with the PET scan. Blood glucose level equals 89 SCAN: Initial Scan FINDINGS: SKULL BASE AND NECK: No suspicious abnormal hypermetabolic uptake. CHEST, MEDIASTINUM, AND HILAR REGION: There are slightly hypermetabolic and prominent right axillary lymph nodes including level 2 and 3 along course of the pectoralis minor muscle. Correlate clinically for recent vaccine administration is advised. No definitive abnormal enlarged lymph nodes. No defini tive abnormal hypermetabolic uptake in the right breast or remainder of the thorax. ABDOMEN AND PELVIS: Normal excretion is seen. Nonspecific mild bowel uptake. Abnormal uptake right pelvis axial image 201 corresponds to 1.5 cm abnormal iliac chain lymph node, m ax SUV is 18.76. Superior to this there is abnormal 1.3 x 1.0 cm hypermetabolic right external iliac chain lymph node near its origin axial image 183, max SUV is 10.22. Small abnormal near 1.0 cm focus of hypermetabolic uptake in the posterior lower uterine segment/cerv ix axial image 218, max SUV is 7.07. Suspect normal left ovary near axial image 200. Adjacent to this there is suspicious 9 mm hypermetabo lic lymph node axial image 198, max SUV is 9.38. OSSEOUS STRUCTURES: No abnormal hypermetabolic uptake. OTHER CT: Mild calcified plaque right carotid bulb level. Occasional scattered calcified nodule or be nign granuloma in the right lung with densely calcified right paratracheal along with pericarinal and right hilar lymph nodes. There is peripheral reticulation and fibrotic changes bilaterally. Calcific ations throughout the spleen all consistent with product of old granulomatous disease. Cholecystectomy clips are present. There is moderate disc space narrowing lower lumbar levels. IMPRESSION: Confirmation of lower uterine segment/cervical neoplasm. There is abnormal bilateral pelv ic adenopathy present. No distal metastatic disease clearly seen. Nonspecific mildly hypermetabolic r ight axillary lymph nodes.
== END | disposition home or self-care (01) ==
LOC: RADPETMAIN 13:15
PROVIDERS: ATTEND Obstetrics & Gynecology Gynecologic Oncology
DX: C53.9 Malignant neoplasm of cervix uteri, unspecified (principal)
CPT/HCPCS: 78815; A9552

== ENCOUNTER 2023-04-16 16:11 | Emergency (ER) | payer BC ==
--- NOTE | 2023-04-16 16:28 | ED ---
Syncope HPI - General Stated Complaint: Syncope Time Seen by Provider: 04/16/23 16:14 - History of Present Illness Initial Comments: This patient is a 57-year-old woman presenting to have evaluation after she had what sounds like syncopal episode. The patient states that she has intermittent history of constipation. She was having trouble having bowel movements today. She did take a laxative and then was attempting to have bowel movement. She states the next thing she realized she was waking up on the floor with right sided headache and noticed swelling at her brow. EMS brings the patient to have further evaluation. She is complaining of headache mainly right frontal but also generalized. She states it feels like she is stuttering when she speaks. She has not noted any other changes. Patient denies change in sensation. No neck pain noted. Patient did not note chest pain, palpitations, dyspnea, diaphoresis. MD Complaint: loss of consciousness, collapsed -: minutes(s) Prodromal Symptoms: none Witnessed: no Injuries Sustained Associated with Event: Head Current Symptoms: headache Context: other (During bowel movement) Treatments Prior to Arrival: none - Related Data Home Medications Medication Instructions Recorded Confirmed Evolocumab [Repatha Sureclick] 140 mg SQ Q14D 04/16/23 04/16/23 Omeprazole [PriLOSEC] 20 mg PO DAILY 04/16/23 04/16/23 Thiamine [Vitamin B-1] 100 mg PO DAILY 04/16/23 04/16/23 Previous Rx's Medication Instructions Recorded Aspirin 325 mg PO DAILY #30 tab 10/25/16 Allergies Allergy/AdvReac Type Severity Reaction Status Date / Time Sulfa (Sulfonamide Allergy Rash/Hives Verified 04/16/23 17:18 Antibiotics) [id number] Reductase AdvReac SEVERE Verified 04/16/23 17:18 Inhibitor MUSCLE PAIN [Wordvgr-Rlh-Omu Reductase Inhibitor] Review of Systems ROS Statement: Those systems with pertinent positive or pertinent negative responses have been documented in the HPI. ROS Other: All systems not noted in ROS Statement are negative. Constitutional: Denies: fever, weakness Eyes: Denies: vision change Respiratory: Denies: cough, dyspnea Cardiovascular: Reports: syncope. Denies: chest pain, palpitations, edema Gastrointestinal: Denies: abdominal pain, nausea, vomiting Genitourinary: Denies: dysuria, hematuria Musculoskeletal: Denies: back pain Skin: Denies: rash Neurological: Reports: headache. Denies: weakness, numbness, paresthesias, confusion Hematological/Lymphatic: Denies: easy bleeding Past Medical History Past Medical History: GERD/Reflux, Hyperlipidemia, Hypertension, Myocardial Infarction (IA) Last Myocardial Infarction Date:: 10/23/2016 History of Any Multi-Drug Resistant Organisms: MRSA Date of last positivie culture/infection: 12/27/15 MDRO Source:: LEFT LEG MRSA Past Surgical History: Appendectomy Additional Past Surgical History / Comment(s): COLTEN TUCK Past Anesthesia/Blood Transfusion Reactions: Postoperative Nausea & Vomiting (PONV) Past Psychological History: No Psychological Hx Reported Past Alcohol Use History: None Reported Past Drug Use History: None Reported - Past Family History Mother Family Medical History: Coronary Artery Disease (CAD) General Exam General appearance: alert, in no apparent distress, anxious Head exam: Present: normocephalic, other (Has moderate right brow hematoma and there is marked tenderness.) Eye exam: Present: normal appearance, PERRL, EOMI, periorbital swelling, periorbital tenderness (See above). Absent: scleral icterus, conjunctival injection, nystagmus ENT exam: Present: normal oropharynx, mucous membranes moist, normal external ear exam Neck exam: Present: normal inspection, other (Cervical collar) Respiratory exam: Present: normal lung sounds bilaterally. Absent: respiratory distress, wheezes, rales, rhonchi, stridor, chest wall tenderness Cardiovascular Exam: Present: regular rate, normal rhythm, normal heart sounds. Absent: systolic murmur, diastolic murmur, rubs, gallop GI/Abdominal exam: Present: soft. Absent: distended, tenderness, guarding, rebound, rigid, mass Extremities exam: Present: normal inspection, normal capillary refill. Absent: pedal edema, calf tenderness Back exam: Present: normal inspection. Absent: CVA tenderness (R), CVA tenderness (L) Neurological exam: Present: alert, oriented X3, CN II-XII intact. Absent: motor sensory deficit Skin exam: Present: warm, dry, intact, normal color. Absent: rash Course Vital Signs 04/16/23 04/16/23 04/16/23 16:12 17:36 18:27 Temperature 99.8 F H 101 F H Pulse Rate 97 101 H 96 Respiratory 18 18 18 Rate Blood Pressure 126/69 135/82 123/83 O2 Sat by Pulse 96 95 Oximetry 04/16/23 04/16/23 04/16/23 19:19 20:09 20:48 Temperature 101.7 F H 100.9 F H Pulse Rate 96 96 Respiratory 16 16 Rate Blood Pressure 104/50 122/70 O2 Sat by Pulse 95 95 Oximetry 04/16/23 21:32 Temperature 97.7 F Pulse Rate 68 Respiratory 16 Rate Blood Pressure 106/46 O2 Sat by Pulse 96 Oximetry EKG Findings - EKG Results: EKG: interpreted by ERMD, sinus rhythm (Rate 95 bpm), normal ST/T - Blocks, [place], Hypertrophy, ST Abn: QRS axis and voltage: left axis deviation (-30 to -90) (Borderline left axis), low voltage (<0.5 MV total QRS and <1.0 MV in each precordial lead) Medical Decision Making - Medical Decision Making The patient had chest x-ray which I interpreted as being negative for acute infiltrate, pneumothorax, congestive heart failure. The patient had computed tomography scan of the brain which I interpreted as being negative for acute fracture or intracranial hemorrhage. There is right frontal scalp hematoma. Was pt. sent in by a medical professional or institution (, PA, HOME MAKER, urgent care, hospital, or shelter...) When possible be specific @ -[No] Did you speak to anyone other than the patient for history (EMS, parent, family, police, friend...)? What history was obtained from this source @ -[No] Did you review nursing and triage notes (agree or disagree)? Why? @ -[I reviewed and agree with nursing and triage notes] Were old charts reviewed (outside hosp., previous admission, EMS record, old EKG, old radiological studies, urgent care reports/EKG's, shelter records)? Report findings @ -[No old charts were reviewed] Differential Diagnosis (chest pain, altered mental status, abdominal pain women, abdominal pain men, vaginal bleeding, weakness, fever, dyspnea, syncope, headache, dizziness, GI bleed, back pain, seizure, CVA, palpatations, mental health, musculoskeletal)? @ -[Differential Syncope: Valvular disease, hypertrophic cardiomyopathy, pulmonary embolism, tamponade, tachycardia, bradycardia, IA, hypovolemia, hemorrhage, dissection, anemia, intracranial hemorrhage, seizure, hypoglycemia, carbon monoxide poisoning, this is not meant to be an all-inclusive list. EKG interpreted by me (3pts min.). @ -[As above] X-rays interpreted by me (1pt min.). @ -[As above CT interpreted by me (1pt min.). @ -[As above U/S interpreted by me (1pt. min.). @ -[None done] What testing was considered but not performed or refused? (CT, X-rays, U/S, labs)? Why? @ -[None] What meds were considered but not given or refused? Why? @ -[None] Did you discuss the management of the patient with other professionals (professionals i.e. , PA, HOME MAKER, lab, RT, psych nurse, social science professor, client development director, teacher, accounts officer, case management rn)? Give summary @ -[No] Was smoking cessation discussed for >3mins.? @ -[No] Was critical care preformed (if so, how long)? @ -[No] Were there social determinants of health that impacted care today? How? (Homelessness, low income, unemployed, alcoholism, drug addiction, transportation, low edu. Level, literacy, decrease access to med. care, half-way, rehab)? @ -[No] Was there de-escalation of care discussed even if they declined (Discuss DNR or withdrawal of care, Hospice)? DNR status @ -[No] What co-morbidities impacted this encounter? (DM, HTN, Smoking, COPD, CAD, Cancer, CVA, ARF, Chemo, Hep., AIDS, mental health diagnosis, sleep apnea, morbid obesity)? @ -[None] Was patient admitted / discharged? Hospital course, mention meds given and route, prescriptions, significant lab abnormalities, going to OR and other pertinent info. @ -[As above, patient will be discharged after we discussed appropriate further care and follow-up as well as return parameters Undiagnosed new problem with uncertain prognosis? @ -[No] Drug Therapy requiring intensive monitoring for toxicity (Heparin, Nitro, Insulin, Cardizem)? @ -[No] Were any procedures done? @ -[No] Diagnosis/symptom? @ -[Acute syncopal episode Acute scalp contusion Constipation Acute, or Chronic, or Acute on Chronic? @ -[default] Uncomplicated (without systemic symptoms) or Complicated (systemic symptoms)? @ -[Uncomplicated Side effects of treatment? @ -[No] Exacerbation, Progression, or Severe Exacerbation? @ -[No] Poses a threat to life or bodily function? How? (Chest pain, USA, IA, pneumonia, PE, COPD, DKA, ARF, appy, cholecystitis, CVA, Diverticulitis, Homicidal, Suicidal, threat to staff... and all critical care pts) @ -[No] - Lab Data Result diagrams: 04/16/23 16:43 04/16/23 16:43 Lab Results 04/16/23 04/16/23 04/16/23 Range/Units 16:43 16:43 16:43 WBC 14.9 H (3.8-10.6) k/uL RBC 4.83 (3.80-5.40) m/uL Hgb 15.0 (11.4-16.0) gm/dL Hct 45.1 (34.0-46.0) % MCV 93.5 (80.0-100.0) fL MCH 31.0 (25.0-35.0) pg MCHC 33.2 (31.0-37.0) g/dL RDW 13.8 (11.5-15.5) % Plt Count 325 (150-450) k/uL MPV 6.9 Neutrophils % 87 % Lymphocytes % 8 % Monocytes % 2 % Eosinophils % 2 % Basophils % 0 % Neutrophils # 13.0 H (1.3-7.7) k/uL Lymphocytes # 1.2 (1.0-4.8) k/uL Monocytes # 0.3 (0-1.0) k/uL Eosinophils # 0.3 (0-0.7) k/uL Basophils # 0.0 (0-0.2) k/uL PT 9.7 (9.0-12.0) sec INR 0.9 (<1.2) APTT 23.5 (22.0-30.0) sec D-Dimer 1.03 H (<0.60) mg/L FEU Sodium 138 (137-145) mmol/L Potassium 4.3 (3.5-5.1) mmol/L Chloride 101 (98-107) mmol/L Carbon Dioxide 26 (22-30) mmol/L Anion Gap 11 mmol/L BUN 16 (7-17) mg/dL Creatinine 0.69 (0.52-1.04) mg/dL Est GFR (CKD-EPI)AfAm >90 (>60 ml/min/1.73 sqM) Est GFR (CKD-EPI)NonAf >90 (>60 ml/min/1.73 sqM) Glucose 87 (74-99) mg/dL Calcium 9.3 (8.4-10.2) mg/dL Total Bilirubin 0.5 (0.2-1.3) mg/dL AST 26 (14-36) U/L ALT 21 (4-34) U/L Alkaline Phosphatase 128 H (38-126) U/L Troponin I (0.000-0.034) ng/mL NT-Pro-B Natriuret Pep pg/mL Total Protein 7.4 (6.3-8.2) g/dL Albumin 4.1 (3.5-5.0) g/dL Urine Color Urine Appearance (Clear) Urine pH (5.0-8.0) Ur Specific [place] (1.001-1.035) Urine Protein (Negative) Urine Glucose (UA) (Negative) Urine Ketones (Negative) Urine Blood (Negative) Urine Nitrite (Negative) Urine Bilirubin (Negative) Urine Urobilinogen (<2.0) mg/dL Ur Leukocyte Esterase (Negative) Urine RBC (0-5) /hpf Urine WBC (0-5) /hpf Ur Squamous Epith Cells (0-4) /hpf Urine Bacteria (None) /hpf Hyaline Casts (0-2) /lpf Coronavirus (PCR) (Not Detectd) 04/16/23 04/16/23 04/16/23 Range/Units 16:43 18:43 19:09 WBC (3.8-10.6) k/uL RBC (3.80-5.40) m/uL Hgb (11.4-16.0) gm/dL Hct (34.0-46.0) % MCV (80.0-100.0) fL MCH (25.0-35.0) pg MCHC (31.0-37.0) g/dL RDW (11.5-15.5) % Plt Count (150-450) k/uL MPV Neutrophils % % Lymphocytes % % Monocytes % % Eosinophils % % Basophils % % Neutrophils # (1.3-7.7) k/uL Lymphocytes # (1.0-4.8) k/uL Monocytes # (0-1.0) k/uL Eosinophils # (0-0.7) k/uL Basophils # (0-0.2) k/uL PT (9.0-12.0) sec INR (<1.2) APTT (22.0-30.0) sec D-Dimer (<0.60) mg/L FEU Sodium (137-145) mmol/L Potassium (3.5-5.1) mmol/L Chloride (98-107) mmol/L Carbon Dioxide (22-30) mmol/L Anion Gap mmol/L BUN (7-17) mg/dL Creatinine (0.52-1.04) mg/dL Est GFR (CKD-EPI)AfAm (>60 ml/min/1.73 sqM) Est GFR (CKD-EPI)NonAf (>60 ml/min/1.73 sqM) Glucose (74-99) mg/dL Calcium (8.4-10.2) mg/dL Total Bilirubin (0.2-1.3) mg/dL AST (14-36) U/L ALT (4-34) U/L Alkaline Phosphatase (38-126) U/L Troponin I <0.012 (0.000-0.034) ng/mL NT-Pro-B Natriuret Pep pg/mL Total Protein (6.3-8.2) g/dL Albumin (3.5-5.0) g/dL Urine Color Light Yellow Urine Appearance Clear (Clear) Urine pH 7.5 (5.0-8.0) Ur Specific [place] 1.013 (1.001-1.035) Urine Protein Negative (Negative) Urine Glucose (UA) Negative (Negative) Urine Ketones Negative (Negative) Urine Blood Negative (Negative) Urine Nitrite Negative (Negative) Urine Bilirubin Negative (Negative) Urine Urobilinogen <2.0 (<2.0) mg/dL Ur Leukocyte Esterase Trace H (Negative) Urine RBC 3 (0-5) /hpf Urine WBC 4 (0-5) /hpf Ur Squamous Epith Cells 1 (0-4) /hpf Urine Bacteria Rare H (None) /hpf Hyaline Casts 1 (0-2) /lpf Coronavirus (PCR) Not Detected (Not Detectd) 04/16/23 Range/Units 20:38 WBC (3.8-10.6) k/uL RBC (3.80-5.40) m/uL Hgb (11.4-16.0) gm/dL Hct (34.0-46.0) % MCV (80.0-100.0) fL MCH (25.0-35.0) pg MCHC (31.0-37.0) g/dL RDW (11.5-15.5) % Plt Count (150-450) k/uL MPV Neutrophils % % Lymphocytes % % Monocytes % % Eosinophils % % Basophils % % Neutrophils # (1.3-7.7) k/uL Lymphocytes # (1.0-4.8) k/uL Monocytes # (0-1.0) k/uL Eosinophils # (0-0.7) k/uL Basophils # (0-0.2) k/uL PT (9.0-12.0) sec INR (<1.2) APTT (22.0-30.0) sec D-Dimer (<0.60) mg/L FEU Sodium (137-145) mmol/L Potassium (3.5-5.1) mmol/L Chloride (98-107) mmol/L Carbon Dioxide (22-30) mmol/L Anion Gap mmol/L BUN (7-17) mg/dL Creatinine (0.52-1.04) mg/dL Est GFR (CKD-EPI)AfAm (>60 ml/min/1.73 sqM) Est GFR (CKD-EPI)NonAf (>60 ml/min/1.73 sqM) Glucose (74-99) mg/dL Calcium (8.4-10.2) mg/dL Total Bilirubin (0.2-1.3) mg/dL AST (14-36) U/L ALT (4-34) U/L Alkaline Phosphatase (38-126) U/L Troponin I (0.000-0.034) ng/mL NT-Pro-B Natriuret Pep 66 pg/mL Total Protein (6.3-8.2) g/dL Albumin (3.5-5.0) g/dL Urine Color Urine Appearance (Clear) Urine pH (5.0-8.0) Ur Specific [place] (1.001-1.035) Urine Protein (Negative) Urine Glucose (UA) (Negative) Urine Ketones (Negative) Urine Blood (Negative) Urine Nitrite (Negative) Urine Bilirubin (Negative) Urine Urobilinogen (<2.0) mg/dL Ur Leukocyte Esterase (Negative) Urine RBC (0-5) /hpf Urine WBC (0-5) /hpf Ur Squamous Epith Cells (0-4) /hpf Urine Bacteria (None) /hpf Hyaline Casts (0-2) /lpf Coronavirus (PCR) (Not Detectd) Disposition Clinical Impression: Syncope, Hematoma, Constipation Disposition: HOME SELF-CARE Condition: Fair Instructions (If sedation given, give patient instructions): Constipation (ED), Syncope (ED), Head Injury (ED) Is patient prescribed a controlled substance at d/c from ED?: No Referrals: Yulisa Lambert DO [Primary Care Provider] - 1-2 days
[2023-04-16 16:59] LABS: Basophils % (A) 0 %; Eosinophils # (A) 0.3 k/uL (0-0.7); Eosinophils % (A) 2 %; HCT 45.1 % (34.0-46.0); Lymphocytes # (A) 1.2 k/uL (1.0-4.8); Lymphocytes % (A) 8 %; MCHC 33.2 g/dL (31.0-37.0); MCV 93.5 fL (80.0-100.0); Mean Platelet Volume 6.9; Monocytes # (A) 0.3 k/uL (0-1.0); Monocytes % (A) 2 %; Neutrophils % (A) 87 %; Platelet Count 325 k/uL (150-450); RBC 4.83 m/uL (3.80-5.40); RDW 13.8 % (11.5-15.5); WBC 14.9 k/uL (3.8-10.6)
[2023-04-16 17:14] LABS: INR 0.9 (<1.2); Partial Thromboplastin Time 23.5 sec (22.0-30.0); Prothrombin Time 9.7 sec (9.0-12.0)
[2023-04-16 17:31] LABS: ALT 21 U/L (4-34); AST 26 U/L (14-36); African American GFR (CKD) >90 (>60 ml/min/1.73 sqM); Albumin 4.1 g/dL (3.5-5.0); Alkaline Phosphatase 128 U/L (38-126); Anion Gap 11 mmol/L; Blood Urea Nitrogen 16 mg/dL (7-17); Calcium 9.3 mg/dL (8.4-10.2); Carbon Dioxide 26 mmol/L (22-30); Chloride 101 mmol/L (98-107); Glucose 87 mg/dL (74-99); Non-African American GFR(CKD) >90 (>60 ml/min/1.73 sqM); Potassium 4.3 mmol/L (3.5-5.1); Sodium 138 mmol/L (137-145); Total Bilirubin 0.5 mg/dL (0.2-1.3); Total Protein 7.4 g/dL (6.3-8.2)
--- NOTE | 2023-04-16 18:03 | CT ---
EXAMINATION TYPE: CT brain cspine wo con CT DLP: 1696.9 mGycm, Automated exposure control for dose reduction was used. DATE OF EXAM: 04/16/2023 5:37 PM COMPARISON: 08/05/2021 PET CLINICAL INDICATION:Female, 57 years old with history of syncope/scalp hematoma/pain; fall TECHNIQUE: Brain: Multiple axial CT images of the brain were obtained without IV contrast. Cspine: Axial CT images from the skull base to the inferior aspect of T2 we obtained without intraven ous contrast. Coronal and sagittal reformatted images were also reviewed. FINDINGS: Brain: Extra-axial spaces: No abnormal extra-axial fluid collections. Ventricular system: Within normal limits Cerebral parenchyma: No acute intraparenchymal hemorrhage or mass effect. The mix-white junction is well differentiated. Cerebellum: Unremarkable. Mass effect: No evidence of midline shift. Intracranial vasculature: unremarkable Soft tissues: Right periorbital subcutaneous hematoma measuring 5.6 x 1.4 cm. Left frontal scalp anselmo a. Calvarium/osseous structures: No depressed skull fracture. Paranasal sinuses and mastoid air cells: Clear. Visualized orbits: Orbital contents are intact. Cervical spine: Fracture: None. Osseous structures: Multilevel degenerative disc disease changes with endplate spurring and disc oste ophyte complex's. Vertebral alignment: Within normal limits. Spinal canal/Neural Foramina: No evidence of significant spinal canal narrowing. No evidence for sign ificant neural foraminal stenosis. Neck soft tissues: Prevertebral soft tissues are within normal limits. Other: The airway is patent. Right upper lung calcified granuloma and calcified lymph nodes in the me diastinum similar to prior PET/CT 08/05/2021 IMPRESSION: 1. No acute intracranial process. 2. Right periorbital subcutaneous hematoma and left frontal soft tissue edema. 3. No evidence of cervical spine fracture. 4. Mild multilevel degenerative disc disease.
--- NOTE | 2023-04-16 18:23 | CT ---
EXAMINATION TYPE: CT abdomen pelvis wo con CT DLP: 1013.4 mGycm, Automated exposure control for dose reduction was used. DATE OF EXAM: 04/16/2023 5:37 PM COMPARISON: Pet/CT 08/05/2021, 09/29/2020 CLINICAL INDICATION:Female, 57 years old with history of Left abdominal pain; left sided abdominal pa in TECHNIQUE: Axial CT of the abdomen and pelvis. Sagittal and coronal reformats were created on a [employer] workstation. Contrast used: mL of , (none if empty) Oral contrast used: without Oral Contrast (none if empty) FINDINGS: LOWER CHEST: Coronary artery calcifications are present. ABDOMEN LIVER: Diffusely hypoattenuating parenchyma. GALLBLADDER AND BILE DUCTS: The gallbladder is surgically absent. PANCREAS: Unremarkable. SPLEEN: Scattered calcified granulomas. ADRENAL GLANDS: Unremarkable. KIDNEYS AND URETERS: No evidence of hydronephrosis or renal calculus. The ureters are unremarkable. PELVIS BLADDER: Unremarkable REPRODUCTIVE: Unremarkable. ABDOMEN & PELVIS STOMACH AND BOWEL: Fat stranding changes within the lower abdomen not really centered around any part icular loop of bowel around the rectum sigmoid colon and small bowel loops. No evidence of bowel obst ruction. The appendix is not visualized. PERITONEUM/RETROPERITONEUM: Trace fluid is seen within the pelvis, no evidence of pneumoperitoneum. VASCULATURE: Mild atherosclerotic calcifications are present throughout the abdominal aorta and its b ranches. No evidence of aortic aneurysm. MUSCULOSKELETAL: No acute osseous abnormalities LYMPH NODES: No gross evidence for lymphadenopathy. SOFT TISSUE/ABDOMINAL WALL: Fat-containing umbilical hernia. IMPRESSION: 1. Some fluid and fat stranding changes layering within the lower abdomen/pelvis and correlate for e nteritis/proctitis. Otherwise no definitive evidence for acute abdominal process. No obstructive urop athy. 2. Hepatic steatosis.
[2023-04-16 19:23] VITALS: RESP 16
[2023-04-16] MEDS ORDERED: ACETAMINOPHEN TAB 325 MG TAB PO STA (19:27)
[2023-04-16 19:56] LABS: Appearance,Urine Clear (Clear); Bacteria,Urine Rare /hpf; Bilirubin,Urine Negative (Negative); Blood,Urine Negative (Negative); Color,Urine Light Yellow; Glucose,Urine (UA) Negative (Negative); Hyaline Casts,Urine 1 /lpf (0-2); Ketones,Urine Negative (Negative); Leukocyte Esterase,Urine Trace (Negative); Nitrite,Urine Negative (Negative); PH, Urine 7.5 (5.0-8.0); Protein,Urine Negative (Negative); RBC,Urine 3 /hpf (0-5); Specific Gravity,Urine 1.013 (1.001-1.035); Squamous Epithelial Cell,Urine 1 /hpf (0-4); Urobilinogen,Urine <2.0 mg/dL (<2.0); WBC,Urine 4 /hpf (0-5)
--- NOTE | 2023-04-16 20:03 | CT ---
EXAMINATION TYPE: CT chest angio for PE CT DLP: 554 mGycm, Automated exposure control for dose reduction was used. DATE OF EXAM: 04/16/2023 7:38 PM COMPARISON: Chest radiograph from same day. Pet/CT 04/16/2023. CLINICAL INDICATION:Female, 57 years old with history of syncope, possible PE; syncope, possible PE TECHNIQUE/CONTRAST: CTA scan of the thorax is performed with IV Contrast, patient injected with 86ml mL of Isovue 370, [place] P images are created and reviewed these are created on a separate workstation.. FINDINGS: Pulmonary Artery: There is no evidence for a filling defect within the pulmonary vasculature to sugge st acute pulmonary embolism. The pulmonary artery is of normal size. Lungs/Pleura: Intralobular septal thickening. No evidence of focal consolidation, pleural effusion or pneumothorax. Airway: Large airways are patent. Heart: Heart is within normal limits for size. Vasculature: Mild atherosclerotic calcifications are present throughout the aorta and its branches. Mediastinum: No gross evidence of adenopathy. Partially calcified lymph nodes in the mediastinum and right pulmonary hilum. Right upper lobe calcified granuloma. Musculoskeletal: Mild degenerative disc disease changes are present throughout the thoracolumbar spin e. Soft Tissues: Unremarkable. Lower neck: No significant findings. Upper Abdomen: Diffuse low-attenuation to the liver parenchyma. Calcified granulomas within the splee n. IMPRESSION: 1. No evidence of pulmonary embolism. 2. Pulmonary vascular congestion, correlate with serum BNP.. 3. Hepatic steatosis.
[2023-04-16] MEDS ORDERED: MAGNESIUM CITRATE 296 ML BOTTLE PO ONE (21:04)
[2023-04-16] MEDS ORDERED: IBUPROFEN 600 MG TAB PO STA (21:04)
[2023-04-16 21:33] VITALS: BP 106/46; PULSE 68; TEMP 97.7
== END 2023-04-16 21:34 | disposition home or self-care (01) ==
LOC: EC 16:11
DX: S00.03XA Contusion of scalp, initial encounter (principal); R55 Syncope and collapse; K59.00 Constipation, unspecified; K21.9 Gastro-esophageal reflux disease without esophagitis; I25.2 Old myocardial infarction; I10 Essential (primary) hypertension; Z88.2 Allergy status to sulfonamides; Z88.8 Allergy status to other drugs, medicaments and biological substances; Z79.899 Other long term (current) drug therapy; Z20.822 Contact with and (suspected) exposure to COVID-19; X58.XXXA Exposure to other specified factors, initial encounter
CPT/HCPCS: 36415; 93005; 85379; 83880; 80053; 84484; 85025; 85610; 85730; 81001; 87635; 72125; 70450; 71275; 74176; 99285; Q9967